=== PATIENT | female | born 1980 | race Asian ===

== ENCOUNTER 2016-08-12 07:49 | Outpatient (CLI) | payer BC ==
[2016-08-12 08:38] LABS: BASOPHILS % (AUTO) 0.1 % (0.0-2.0); EOSINOPHILS # (AUTO) 0.1 /CMM (0.0-0.7); HEMATOCRIT 35 % (33-45); HEMOGLOBIN 11.5 g/dL (11.5-14.8); LYMPHOCYTES % (AUTO) 14.8 % (20.0-44.0); MEAN CORPUSCULAR HEMOGLOBIN 29 PG (26.0-33.0); MEAN CORPUSCULAR HGB CONC 33 g/dl (31.0-36.0); MEAN CORPUSCULAR VOLUME 87 fL (82-100); MONOCYTES # (AUTO) 0.7 /CMM (0.1-1.30); MONOCYTES % (AUTO) 5.4 % (2.0-12.0); NEUTROPHILS # (AUTO) 10.8 /CMM (1.8-8.9); NEUTROPHILS % (AUTO) 78.7 % (43.0-81.0); PLATELET COUNT (AUTO) 307 /CMM (150-450); RDW COEFFICIENT OF VARIATION 14.6 (11.5-15.0); RED BLOOD CELL COUNT(AUTO) 3.98 MIL/uL (4.0-5.2); WHITE BLOOD COUNT (AUTO) 13.7 K/uL (4.3-11.0)
== END 2016-08-12 23:59 | disposition home or self-care (01) ==
LOC: LAB 07:49
PROVIDERS: ATTEND Obstetrics & Gynecology
DX: Z33.1 Pregnant state, incidental (principal); N91.0 Primary amenorrhea
CPT/HCPCS: 36415; 82947-TC; 85025-TC

== ENCOUNTER 2016-08-27 07:23 | Outpatient (CLI) | payer BC ==
[2016-08-27 08:06] LABS: GLUCOSE FASTING 87 mg/dL (74-106)
== END 2016-08-27 23:59 | disposition home or self-care (01) ==
LOC: LAB 07:23
PROVIDERS: ATTEND Nurse Practitioner Acute Care
DX: O24.419 Gestational diabetes mellitus in pregnancy, unspecified control (principal); Z3A.00 Weeks of gestation of pregnancy not specified
CPT/HCPCS: 36415; 82951-TC; 82952-TC

== ENCOUNTER 2016-11-19 10:51 | Emergency (ER) | payer BC ==
[~2016-11-19] VITALS: Ht 157.5 cm; Wt 63.5 kg
[2016-11-19 10:51] VITALS: BP 133/82
--- NOTE | 2016-11-19 11:43 | NUR ---
DR PANG ON THE PHONE WITH DR LA
== END 2016-11-19 12:08 | disposition home or self-care (01) ==
LOC: ER 10:54
DX: Z48.01 Encounter for change or removal of surgical wound dressing (principal); L76.34 Postprocedural seroma of skin and subcutaneous tissue following other procedure
CPT/HCPCS: 99281; A4606; Z7610; Z7502